=== PATIENT | female | born 1945 | race Caucasian/White ===

== ENCOUNTER 2020-03-25 13:45 | Emergency (ER) | payer MEDICARE, SELFPAY ==
[2020-03-25 13:47] VITALS: BP 131/78; PULSE 103; RESP 18; TEMP 36.3; O2SAT 93; BMI 24.0
[2020-03-25 14:54] LABS: Absolute Lymphocyte Count 0.69 X10^3/uL (0.83-4.51); Absolute Neutrophil Count 5.4 X10^3/uL (2.0-7.7); Basophil# 0.01 X10^3/uL; Basophil% 0.2 % (0-1); Eosinophil# 0.01 X10^3/uL; Eosinophils% 0.2 % (0-5); Hematocrit 41.3 % (37-47); Hemoglobin 13.9 g/dL (12.0-15.0); Lymphocyte # 0.69 X10^3/ul (4.0); Lymphocyte % 10.7 % (19-41); Mean Corp Hgb Conc 33.7 g/dL (32-36); Mean Corpuscular Hgb 32.6 pg (27.0-32.0); Mean Corpuscular Volume 96.7 fL (81-99); Mean Platelet Vol. 9.1 fl (6.2-12.0); Monocyte% 4.7 % (0-10); NRBC Flagged by Analyzer 0 % (0-5); Neutrophil # 5.41 X10^3/uL (2.7-7.7); Neutrophil % 83.9 % (47-70); POSITIVE MORPHOLOGY YES; Platelet Count 217 K/mm3 (150-450); RBC Distribution Width CV 11.7 % (11.6-14.6); RBC Distribution Width SD 41.8 fl (35.1-43.9); Red Blood Count 4.27 M/mm3 (4.2-5.4); White Blood Count 6.4 K/mm3 (4.4-11.0)
[2020-03-25 14:59] LABS: Differential Indicated SCAN CRITERIA MET
[2020-03-25 15:10] LABS: Anion Gap 7 (5-15); BUN 9 mg/dL (7-18); BUN/Creat Ratio 13.3 RATIO (10-20); Calcium,Total 8.6 mg/dL (8.5-10.1); Chloride 101 mmol/L (98-107); Creatinine, Serum 0.68 mg/dL (0.55-1.02); EST Glomerular Filtration Rate 90 mL/min (>60); Est Glom Filt Rate - Afr Amer 109 mL/min (>60); Estimated Creatinine Clearance 41.33 ml/min; Glucose 113 mg/dL (74-106); Potassium 3.5 mmol/L (3.5-5.1); Sodium Level 139 mmol/L (136-145)
[2020-03-25] MEDS: dexAMETHasone 4 MG/ML Vial 6 MG IV (15:23)
--- NOTE | 2020-03-25 15:28 | RAD_ITS ---
STUDY: X-RAY CHEST REASON FOR EXAM: Female, 74 years old. LOSS OF TASTE/SMELL, BODY ACHES, TIRED X 1 WK. TECHNIQUE: Single AP portable view of the chest. COMPARISON: None. FINDINGS: EKG electrodes are seen. Minimal increased markings in the right upper lobe. There is no demonstrated pleural abnormality. Normal size heart. Normal mediastinum and ronen. Normal visualized pulmonary arteries. Normal visualized aortic arch and descending thoracic aorta. Normal visualized thoracic spine. There is degenerative osteoarthritis of the bilateral shoulders. There is no demonstrated abnormality of the visualized soft tissue structures of the upper abdomen. RAD/Chest 1 View (Portable) IMPRESSION: Minimal increased markings in the right upper lobe. Follow-up is recommended. Electronically Signed: Ramírez Rasmussen, at 15:46 EST , Service support ,
[2020-03-25 15:35] VITALS: O2SAT 93
[2020-03-25 16:05] LABS: Probe Check PASS; Specimen Processing Control PASS
[2020-03-25 16:07] LABS: Platelet Estimate ADEQUATE (ADEQ); Red Cell Morphology NORM C+C NORMAL (NORM C&C)
--- NOTE | 2020-03-25 16:08 | ED.DCSUM_ITS ---
- ER Visit Summary Date of Service: 03/25/20 Chief Complaint: Do not feel well History of Present Illness: The patient is a 74 F who does not have a primary care physician. She reports that approximately week ago she had a loss of sense of taste and smell. States that she also has a cough. She had shortness of breath with walking. They have a pulse oximeter at home. reports that her pulse ox is high 80s to low 90s at rest. When she walks it seems to go up into the 90s. However, then when she sits down it goes into the mid 80s. 5 to 7 minutes later is returned to the mid 90s. She has not been tested for Covid. Patient [place] any fever or chills. She complains of generalized weakness. Poor appetite and injury. Physical Examination: Vitals: Stable. Afebrile. General: Well-nourished and well-developed. Head: Normocephalic atraumatic. Neck: Supple, no lymphadenopathy. No JVD. Nontender. Cardiovascular: Regular rate and rhythm. No murmurs. Respiratory: No respiratory distress. Clear to auscultation bilaterally. Abdominal: Soft, nontender, nondistended, normal bowel sounds. No guarding, rebound, or peritoneal signs. Back: Nontender. Extremities: Nontender, no edema. Skin: Normal color, no rash. Neurologic: Alert and oriented ?3. Cranial nerves II through XII are intact. Normal strength and sensation. Psych: Normal affect. Test Results: CBC shows segmented flows 84 lymphocytes of 11. Chem-7 shows a glucose of 113. COVID-19 is positive. Clinical Impression(s) from Imaging Studies Chest X-Ray 03/25/20 15:28 IMPRESSION: Minimal increased markings in the right upper lobe. Follow-up is recommended. Electronically Signed: Ramírez Alcantarapaulette, at 15:46 EST , Service support , Emergency Department Course and Treatment: Patient is ambulatory pulse ox was 88% on room air. On 2 L nasal cannula her pulse ox is in the high 90s and she is resting comfortably. She was given dexamethasone IV. Treatment Plan: The patient would like to go home. We have arranged for her to have home O2. She also be discharged on a weeks worth of dexamethasone. Instructed to return the emerge department for any worsening symptoms. Follow- up with her primary care physician in 10 to 14 days if not improved. Disposition: To home in improved and stable condition. Impression: 1. COVID-19 positive. 2. Hypoxia. This note was generated with [employer] dictation software. It may contain incorrect words, spelling, and punctuation that were not noted in review of the chart prior to signing ED Disposition - Plan for ED Patient: Disposition: Home or Assisted Living Instructions: ED Upper Resp Infec No Abx Tx Prescriptions: Dexamethasone 6 mg PO DAILY #7 tab Prescription Printed Referrals: Tung Coyle III, MD [STAFF PHYSICIAN] - 10-14 Days if not better
--- NOTE | 2020-03-25 16:40 | CM.ED ---
SOCIAL WORK Informant: Dr. Woodson Reason for Consult: Discharge Planning- Home O2 needs Updated by Dr. Woodson patient with positive COVID-19 test. Patient does not require admission, requires home 02. Discussed with patient's who is in agreement with home O2 being set up through [employer]. reports does have pulse ox at home. Informed [employer] and a nurse case hardener will be following up with patient and . requests they call [phone]. Dr. Woodson completed Quick Script for [employer]. Demographics, COVID-19 test results and script faxed and called to [employer]. Worker states sending residential sales representative over at this time to deliver tank. Patient, and staff updated. Plan: Home with home O2 Teetee Schroeder MSW, [employer]ARD LAB[employer]ER
[2020-03-25 17:00] VITALS: BP 125/70; PULSE 85; RESP 24; O2SAT 97
[2020-03-25 17:23] VITALS: BP 125/79; PULSE 81; RESP 18; O2SAT 97
--- NOTE | 2020-03-26 13:58 | CASEMGMT ---
ELVIRA SCHAFFER Follow-up Call: Call placed to pt's 's cell phone per their request. Voicemail identified as Davie's received and message left requesting a return call. Ramesh Maldonado RN CM
--- NOTE | 2020-03-27 15:43 | CASEMGMT ---
ELVIRA SCHAFFER Follow-up: Pt's Davie returned phone call from 03/26/2020. He explained that their phones were out yesterday and he did not receive the message until today. Davie states that the patient is improved today with increased alertness and appetite. He reports pt's pulse oximeter readings have been in the 90's at rest but when she moves around it drops to 85-90%. He explained that she is not wearing the oxygen when she was up and it decreased. Educated him on the need for her to wear the oxygen at all times including when she is up and moving. He expressed understanding. He stated that they put the concentrator in the middle level to allow the tubing to reach to all three levels of their home. Pt's denies any fevers but states the pt sweats at night. Pt's enquired as to when they should cease using the oxygen. Explained that her pulse oximetry readings would need to stay greater than 90% even with movement but that he should follow-up with a primary care physician for final direction on when to stop the oxygen use. He states that they do not have a primary care physician at this time but had been in the process of looking for one when they became ill. This RN CM offered to provide them a list but pt's states their daughter is a nurse and can help them find one. Explained the need to have a PCP to determine need to cease O2 use and for senior care management of chronic conditions and a point of contact when illnesses arise. He expressed understanding. Pt's denied any further questions or concerns. Ramesh Maldonado RN CM
--- NOTE | 2020-03-28 14:58 | CASEMGMT ---
RN CM Note: attempted call to patient's . Phone call dropped and was not able to speak with him. Will attempt call again. Adarsh THOMPSONN RN ACM
--- NOTE | 2020-03-29 15:24 | CASEMGMT ---
ELVIRA SCHAFFER ED Follow up note: intro role of CM to patient's . He states the patient is doing well at home and is noticeably improving today. She was able to ambulate around home and eat a meal without oxygen and her pulse oximeter stayed above 90%. -Patient is eating and drinking without difficulty. Still has fatigue with activity, however this is improving. -Daughter is completing paperwork for PCP with [facility]. encouraged to follow up so first appointment can be made. states he has been in communication with Dr. Adkins if questions arise. -Questions answered re: length of quarantine. states they will be forgoing thanksgiving get together with family. -No further questions. ELVIRA SCHAFFER let know this concludes the follow up calls. ELVIRA SCHAFFER offered to give # if questions arise for Wednesday, however he felt they would not need this and would utilize daughter if questions arise. Adarsh SEGAL RN ACM
== END 2020-03-25 17:24 | disposition home or self-care (01) ==
LOC: ED 15:01
PROVIDERS: Emergency Provider Emergency Medicine
DX: U07.1 COVID-19 (principal); R09.02 Hypoxemia
CPT/HCPCS: 71045; 80048; 85025; 87635; 96374; 99284; A4216; U0002

== ENCOUNTER 2024-04-10 10:21 | Emergency (ER) | payer MEDICARE, SELFPAY ==
[2024-04-10] VITALS (8 sets, daily range): BP systolic 126–173; BP diastolic 80–96; PULSE 72–119; RESP 14–24; TEMP 36.6–36.9; O2SAT 95–100; BMI 21.2
--- NOTE | 2024-04-10 10:39 | CT_ITS ---
STUDY: CT BRAIN WITHOUT CONTRAST REASON FOR EXAM: Female, 78 years old. PT FELL ON WEDNESDAY, HIT HER HEAD, C/O DIZZINESS. RT HAND IS SWOLLEN AND DISCOLORED. LT RING FINGER PT IS UNABLE TO STRAIGHTENED. RADIATION DOSAGE (If Supplied By Facility): CTDIvol = ( 44.99 ) mGy, DLP = ( 779.24 ) mGycm TECHNIQUE: Transaxial CT imaging of the brain was performed without administration of intravenous contrast material. Individualized dose optimization techniques were used for this CT. COMPARISON: None. FINDINGS: No demonstrated skull fracture or pneumocephalus or subdural hemorrhage. No visualized extra-axial fluid collection or midline shift. Normal soft tissue structures. Normal calvarium. There is mild cerebral atrophy with widening of the extra-axial spaces and ventricular dilatation. There are areas of decreased attenuation within the white matter tracts of the supratentorial brain, consistent with microvascular disease changes. There are small punctate calcifications of the basal ganglia which are seen in the aging brain as a normal variant. Normal brainstem. Normal cerebellum. There is no intracranial hemorrhage. There are no findings of an acute ischemic infarction. Normal visualized paranasal sinuses. CT/Brain/Head without Contrast IMPRESSION: 1. Chronic and chronic ischemic involutional changes of the brain. Electronically Signed: Aric Alarcon MD at 11:37 EST ,
--- NOTE | 2024-04-10 10:39 | CT_ITS ---
STUDY: CT CERVICAL SPINE WITHOUT CONTRAST REASON FOR EXAM: Female, 78 years old. PT FELL ON WEDNESDAY, HIT HER HEAD, C/O DIZZINESS. RT HAND IS SWOLLEN AND DISCOLORED. LT RING FINGER PT IS UNABLE TO STRAIGHTENED. RADIATION DOSAGE (If Supplied By Facility): CTDIvol = ( 15.93 ) mGy, DLP = ( 279.36 ) mGycm TECHNIQUE: High resolution transaxial imaging was performed without contrast material. Sagittal and coronal images were reconstructed. Individualized dose optimization techniques were used for this CT. COMPARISON: None FINDINGS: An acute mild comminuted compression fracture with cortical offset and retropulsion is present at T4 with loss of vertebral body height of approximately 20-30%. No acute fractures are seen in the cervical spine. Mild to moderate multilevel degenerative changes are present in the cervical spine. No demonstrated jumped facets. Normal craniovertebral junction. Normal anterior atlantoaxial articulation. Normal odontoid process. Normal cervical lordosis. The bony structures are demineralized. Normal visualized soft tissue structures. CT/Spine Cervical without Contras IMPRESSION: 1. An acute mild comminuted compression fracture with cortical offset and retropulsion is present at T4 with loss of vertebral body height of approximately 20-30%. No acute fractures are seen in the cervical spine. 2. Multilevel degenerative changes, as described above. N.B. : Tram Castro RN, confirmed on 04/10/2024 11:46:08 (ET) that the healthcare facility has received the radiology report. Electronically Signed: Aric Alarcon MD at 11:40 EST ,
--- NOTE | 2024-04-10 10:43 | EX.ED.GENINJ ---
HPI History of Present Illness Chief Complaint: Head Injury Informant: patient and spouse/S.O. Narrative Narrative: 78-year-old female presenting to the emergency room with right hand injury. Patient states that early Wednesday morning she fell at home. She missed a step. She believes she hit her head and had soreness to her neck. She notes an injury to the right ring finger and unable to straighten it. She notes bruising over the hand and finger. states that she just does not seem her normal self. She is shaky and unsteady. No reported loss of consciousness. No nausea or vomiting. PFSH PFSH Home Medications ?Medication ?Instructions ?Recorded ?Last Taken ?Type aspirin 81 mg tablet,delayed 81 mg PO DAILY 04/29/20 Unknown History release (Adult Low Dose Aspirin) Allergy/AdvReac Type Severity Reaction Status Date / Time No Known Allergies Allergy Verified 04/10/24 10:22 Family History Father Heart disease Brother Heart disease Surgical History History of tonsillectomy and adenoidectomy Social History Smoking Status: Never smoker alcohol intake: current alcohol intake frequency: 0-2 drinks per day details: 1-2 oz. of Gin daily substance use type: does not use ROS ROS ED Constitutional Constitutional ED: Denies chills or weight loss Eyes Eyes: Denies change in vision or diplopia ENT ENT ED: Denies ear pain, rhinorrhea or sore throat Cardiovascular Cardiovascular: Denies chest pain, orthopnea, palpitations or racing heartbeat Respiratory/Chest Respiratory/Chest: Denies cough, dyspnea or orthopnea Gastrointestinal Gastrointestinal: Denies abdominal pain, diarrhea, nausea or vomiting Genitourinary Genitourinary ED: Denies dysuria, hematuria or urinary frequency Musculoskeletal Musculoskeletal: Reports neck pain and other Details: Right hand pain ring finger injury ; Denies arthralgias or myalgias Integumentary Denies abscess or rash Neurologic Neurologic: Denies headache(s) or weakness Psychiatric Psychiatric: Denies anxiety, depression, suicidal ideation or suicidal thoughts Endocrine Endocrinology: Denies polydipsia, polyphagia or polyuria Allergic/Immunologic Allergic/Immunologic ED: Denies mouth swelling, tongue swelling or urticaria EXAM Physical Exam Const Vital Signs: 04/10/24 10:22 04/10/24 10:22 04/10/24 10:40 Temperature 98 F Temperature Source Temporal Pulse Rate 119 H 74 Pulse Rate [1 (Initial Baseline)] Pulse Rate [3] Respiratory Rate 14 Respiratory Rate [1 (Initial Baseline)] Respiratory Rate [3] Respiratory Effort Normal Respiratory Depth Normal Respiratory Pattern Normal Blood Pressure 163/96 H Blood Pressure [1 (Initial Baseline)] Blood Pressure [3] Blood Pressure Mean 118 Pulse Ox 98 Oxygen Delivery Method Room Air Room Air Oxygen Delivery Method [1 (Initial Baseline)] Oxygen Delivery Method [3] Oxygen Flow Rate (L/min) Oxygen Flow Rate (L/min) [1 (Initial Baseline)] Oxygen Flow Rate (L/min) [3] EtCo2 (Normal 35-45 , high quality CPR 10-20 & ROSC>/=40mmHg EtCo2 (Normal 35-45 , high quality CPR 10-20 & ROSC>/=40mmHg [1 (Initial Baseline)] EtCo2 (Normal 35-45 , high quality CPR 10-20 & ROSC>/=40mmHg [3] 04/10/24 12:22 04/10/24 13:21 04/10/24 13:51 Temperature 98.5 F Temperature Source Pulse Rate 82 94 Pulse Rate [1 (Initial Baseline)] Pulse Rate [3] Respiratory Rate 24 H 22 H Respiratory Rate [1 (Initial Baseline)] Respiratory Rate [3] Respiratory Effort Respiratory Depth Respiratory Pattern Blood Pressure 162/82 H 173/80 H Blood Pressure [1 (Initial Baseline)] Blood Pressure [3] Blood Pressure Mean 108 Pulse Ox 95 100 Oxygen Delivery Method Room Air Oxygen Delivery Method [1 (Initial Baseline)] Oxygen Delivery Method [3] Oxygen Flow Rate (L/min) Oxygen Flow Rate (L/min) [1 (Initial Baseline)] Oxygen Flow Rate (L/min) [3] EtCo2 (Normal 35-45 , high quality CPR 10-20 & ROSC>/=40mmHg 24 25 EtCo2 (Normal 35-45 , high quality CPR 10-20 & ROSC>/=40mmHg [1 (Initial Baseline)] EtCo2 (Normal 35-45 , high quality CPR 10-20 & ROSC>/=40mmHg [3] 04/10/24 13:52 04/10/24 14:00 04/10/24 14:05 Temperature Temperature Source Pulse Rate Pulse Rate [1 (Initial Baseline)] 98 Pulse Rate [3] 89 Respiratory Rate Respiratory Rate [1 (Initial Baseline)] 19 H Respiratory Rate [3] 22 H Respiratory Effort Respiratory Depth Respiratory Pattern Blood Pressure Blood Pressure [1 (Initial Baseline)] 173/80 H Blood Pressure [3] 126/87 H Blood Pressure Mean Pulse Ox Oxygen Delivery Method Nasal Cannula Room Air Oxygen Delivery Method [1 (Initial Baseline)] Nasal Cannula Oxygen Delivery Method [3] Nasal Cannula Oxygen Flow Rate (L/min) 2 Oxygen Flow Rate (L/min) [1 (Initial Baseline)] 2 Oxygen Flow Rate (L/min) [3] 2 EtCo2 (Normal 35-45 , high quality CPR 10-20 & ROSC>/=40mmHg 31 41 EtCo2 (Normal 35-45 , high quality CPR 10-20 & ROSC>/=40mmHg [1 (Initial Baseline)] 30 EtCo2 (Normal 35-45 , high quality CPR 10-20 & ROSC>/=40mmHg [3] 30 04/10/24 14:10 04/10/24 14:40 Temperature 98.1 F Temperature Source Pulse Rate 72 Pulse Rate [1 (Initial Baseline)] Pulse Rate [3] Respiratory Rate 19 H Respiratory Rate [1 (Initial Baseline)] Respiratory Rate [3] Respiratory Effort Respiratory Depth Respiratory Pattern Blood Pressure 160/86 H Blood Pressure [1 (Initial Baseline)] Blood Pressure [3] Blood Pressure Mean 110 Pulse Ox 97 Oxygen Delivery Method Room Air Oxygen Delivery Method [1 (Initial Baseline)] Oxygen Delivery Method [3] Oxygen Flow Rate (L/min) Oxygen Flow Rate (L/min) [1 (Initial Baseline)] Oxygen Flow Rate (L/min) [3] EtCo2 (Normal 35-45 , high quality CPR 10-20 & ROSC>/=40mmHg EtCo2 (Normal 35-45 , high quality CPR 10-20 & ROSC>/=40mmHg [1 (Initial Baseline)] EtCo2 (Normal 35-45 , high quality CPR 10-20 & ROSC>/=40mmHg [3] Positive well nourished and well developed General Appearance ED: well developed and NAD HEENT Reports normocephalic, head/scalp atraumatic and moist mucous membranes Eyes PERRL and EOMs intact bilaterally Neck full ROM, no lymphadenopathy, supple and no JVD Neck Narrative: Mild soreness of the neck with range of motion. No midline tenderness. Resp normal respiratory effort and clear to auscultation bilaterally Cardio regular rate, regular rhythm and no murmurs GI normal to inspection, nondistended, normoactive bowel sounds and non-tender Palpation: soft Back/Spine no CVA tenderness and normal ROM Back/Spine Narrative: Patient has kyphosis. Tender to palpation around T2-T4. There is a area of ecchymosis in the right scapular region Extremity Extremity Narrative: The dorsum of the right hand is ecchymotic and swollen. The ring finger is held in flexion at the PIP joint. There is no tenderness at the MCP joint. Neurovascularly appears intact. General Extremety ED: Negative for edema General Extremity: Negative for edema Neuro oriented x3 and CN's II-XII intact bilaterally Neuro Narrative: Patient has a tremor at both rest and intention. Sensorium / Orientation: alert Motor Exam: strength 5/5 throughout Psych mental status grossly normal Mood & Affect: Negative for depressed or tearful Skin no rashes or lesions noted and no wounds PROC Procedures Procedural Sedation 1 (Initial Baseline): Consent Signed: Yes Any Problems With Anesthesia: No You/Your family experience fever (hyperthermia) w/anesthesia: No Sedation medication: Propofol Dose: 57 Route: IV Total Moderate Sedation Units: 6 Maliampati Score: Class II ASA Classification: I MDM MDM MDM Narrative Medical decision making narrative: Differential diagnosis includes fracture intracranial hemorrhage dehydration electrolyte abnormalities anemia finger fracture tendon injury neurovascular injury My independent interpretation of the plain films of the right hand is a proximal phalanx fracture of the ring finger. CT the brain shows no acute findings. CT of the cervical spine demonstrates a T4 compression fracture. Therefore a CT of the lumbar and thoracic spine was obtained. Please see radiologist read. Basic blood work shows white count 5.9 hemoglobin 13.7 glucose 127 otherwise normal electrolytes BUN and creatinine within normal limits. I spoke with the patient and her significant other regarding the above findings. My recommendation is that we do procedural sedation to see if I can reduce the deformity to the right ring finger. They provided informed consent for the procedure. Patient received 1/2 mg/kg bolus of propofol followed by second dose to achieve adequate sedation. Once adequate sedation was achieved by recreated flexion then was able to bring the finger into extension. She was placed in a ulnar gutter Ortho glass splint. Patient recovered from sedation without any difficulty. Would recommend follow-up with orthopedics. Dr. Sutton is on for spine he can see her for both the hand and the spine but if they wish to see hand surgery they can see Dr. Atwood. History & Record Review Discussion w/independent historian: Patient and Significant other Lab Data Attestation: I reviewed the patient's lab results. Labs: Laboratory Results - last 24 hr 04/10/24 10:50 WBC 5.9 RBC 4.33 Hgb 13.7 Hct 42.4 MCV 97.9 MCH 31.6 MCHC 32.3 RDW Std Deviation 44.4 H RDW Coeff of Leonora 12.2 Plt Count 194 MPV 9.7 Immature Gran % (Auto) 0.500 Neut % (Auto) 68.7 Lymph % (Auto) 20.8 Thurston % (Auto) 7.8 Eos % (Auto) 1.5 Baso % (Auto) 0.7 Absolute Neuts (auto) 4.1 Absolute Lymphs (auto) 1.23 Nucleated RBC % 0 Sodium 143 Potassium 3.5 Chloride 108 H Carbon Dioxide 30.0 Anion Gap 6 BUN 17 Creatinine 0.92 Estim Creat Clear Calc 40.34 Est GFR (MDRD) Af Amer 75 Est GFR (MDRD) Non-Af 62 BUN/Creatinine Ratio 18.5 Glucose 127 H Calcium 9.6 Radiography Diagnostic Testing: Clinical Impression(s) from Imaging Studies Brain CT 04/10/24 10:39 IMPRESSION: 1. Chronic and chronic ischemic involutional changes of the brain. Electronically Signed: Aric Alarcon MD at 11:37 EST Reading Location ID and State: [facility] / [place] , Service support , Cervical Spine CT 04/10/24 10:39 IMPRESSION: 1. An acute mild comminuted compression fracture with cortical offset and retropulsion is present at T4 with loss of vertebral body height of approximately 20-30%. No acute fractures are seen in the cervical spine. 2. Multilevel degenerative changes, as described above. N.B. : Tram Castro RN, confirmed on 04/10/2024 11:46:08 (ET) that the healthcare facility has received the radiology report. Electronically Signed: Aric Alarcon MD at 11:40 EST , Hand X-Ray 04/10/24 10:54 IMPRESSION: Fracture through the proximal shaft of the fourth proximal phalanx, with posterior angulation. 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 Degenerative arthrosis of the MCP joints and interphalangeal joints of the first through fifth fingers, most severe at the first MCP joint and fifth DIP joint. Electronically Signed: Teto Cortes MD at 11:27 EST , Lumbar Spine CT 04/10/24 12:04 IMPRESSION: 1. Multilevel degenerative changes, as described above. Electronically Signed: Aric Alarcon MD at 13:32 EST , Thoracic Spine CT 04/10/24 12:04 IMPRESSION: 1. An acute mildly comminuted compression fracture of the T4 vertebral body is present with slight retropulsion of the posterior superior aspect of vertebral body into the central canal/anterior epidural space and approximately 20-30% loss of height. Electronically Signed: Aric Alarcon MD at 13:31 EST , Discharge Plan Triage Chief Complaint: Head Injury ED Provider: Avi Peterson Dx/Rx/DC Orders Clinical Impression: Compression fracture of T4 vertebra, Fracture of proximal phalanx of digit of right hand, Injury of extensor tendon of right hand, Fall Instructions: ED Fracture, Vertebral Compression, ED Fracture, Finger, Closed Prescriptions: No Action aspirin [Adult Low Dose Aspirin] 81 mg tablet,delayed release (DR/EC) 81 mg PO DAILY Primary Care Provider: Care Physician,No Primary Referrals: Riki Sutton MD [Med Staff - Active Staff] - As soon as possible (for orthopedic spine and finger fracture) Tino Atwood MD [Med Staff - Active Staff] - As soon as possible (for hand surgery if you wish to see hand surgery instead of orthopedics) Care Physician,No Primary [Primary Care Provider] - Print Language: Indonesian Disposition Disposition: Home, Self Care Discharge Date/Time: 04/10/24 14:48
--- NOTE | 2024-04-10 10:54 | RAD_ITS ---
STUDY: X-RAY - RIGHT HAND REASON FOR EXAM: Female, 78 years old. Injury 4th digit. TECHNIQUE: 3 views of the right hand. COMPARISON: None. FINDINGS: Normal radiocarpal articulation. Normal distal radioulnar joint. Normal visualized carpal bones. Normal carpal articulations There is degenerative arthrosis of the carpometacarpal (CMC) articulation of the thumb. Normal second through fifth carpometacarpal joints. Intact metacarpi. There is degenerative arthrosis of the MCP joints and interphalangeal joints of the first through fifth fingers, most severe at the first MCP joint and fifth DIP joint. There is a fracture through the proximal shaft of the fourth proximal phalanx, with posterior angulation. There is mild soft tissue swelling along the dorsum of the hand. RAD/Hand Min 3 Views IMPRESSION: Fracture through the proximal shaft of the fourth proximal phalanx, with posterior angulation. 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 Degenerative arthrosis of the MCP joints and interphalangeal joints of the first through fifth fingers, most severe at the first MCP joint and fifth DIP joint. Electronically Signed: Teto Cortes MD at 11:27 [facility] Reading Location ID and State: [facility] / [place] , Service support ,
[2024-04-10 11:01] LABS: Absolute Lymphocyte Count 1.23 X10^3/uL (0.83-4.51); Absolute Neutrophil Count 4.1 X10^3/uL (2.0-7.7); Basophil# 0.04 X10^3/uL; Basophil% 0.7 % (0-1); Eosinophil# 0.09 X10^3/uL; Eosinophils% 1.5 % (0-5); Hematocrit 42.4 % (37-47); Hemoglobin 13.7 g/dL (12.0-15.0); Lymphocyte # 1.23 X10^3/ul (0.83-4.51); Lymphocyte % 20.8 % (19-41); Mean Corp Hgb Conc 32.3 g/dL (32-36); Mean Corpuscular Hgb 31.6 pg (27.0-32.0); Mean Corpuscular Volume 97.9 fL (81-99); Mean Platelet Vol. 9.7 fl (6.2-12.0); Monocyte# 0.46 X10^3/uL; Monocyte% 7.8 % (0-10); NRBC Flagged by Analyzer 0 % (0-5); Neutrophil # 4.05 X10^3/uL (2.7-7.7); Neutrophil % 68.7 % (47-70); Platelet Count 194 K/mm3 (150-450); RBC Distribution Width CV 12.2 % (11.6-14.6); RBC Distribution Width SD 44.4 fl (35.1-43.9); Red Blood Count 4.33 M/mm3 (4.2-5.4); White Blood Count 5.9 K/mm3 (4.4-11.0)
[2024-04-10 11:13] LABS: Anion Gap 6 (5-15); BUN 17 mg/dL (7-18); BUN/Creat Ratio 18.5 RATIO (10-20); Calcium,Total 9.6 mg/dL (8.5-10.1); Chloride 108 mmol/L (98-107); Creatinine, Serum 0.92 mg/dL (0.55-1.02); EST Glomerular Filtration Rate 62 mL/min (>60); Est Glom Filt Rate - Afr Amer 75 mL/min (>60); Estimated Creatinine Clearance 40.34 ml/min; Glucose 127 mg/dL (74-106); Potassium 3.5 mmol/L (3.5-5.1); Sodium Level 143 mmol/L (136-145)
--- NOTE | 2024-04-10 12:04 | CT_ITS ---
STUDY: CT LUMBAR SPINE WITHOUT CONTRAST REASON FOR EXAM: Female, 78 years old. fall thoracic fracture RADIATION DOSAGE (If Supplied By Facility): CTDIvol = ( 17.46 ) mGy, DLP = ( 507.45 ) mGycm TECHNIQUE: The patient was scanned in a multi detector CT scanner. High resolution transaxial imaging was performed. Images were obtained from to . Sagittal and coronal images were reconstructed. Individualized dose optimization techniques were used for this CT. COMPARISON: None FINDINGS: Normal lumbar lordosis. There is no substantial scoliosis. No demonstrated fractures of the vertebral bodies or posterior elements of the lumbar spine. Diffuse demineralization of the osseous structures. Mild multilevel degenerative changes are present. Minimal levoscoliosis noted. No demonstrated sacral or proximal iliac wing fracture. Normal visualized paraspinous soft tissue structures. CT/Spine Lumbar without Contrast IMPRESSION: 1. Multilevel degenerative changes, as described above. Electronically Signed: Aric Alarcon MD at 13:32 EST ,
--- NOTE | 2024-04-10 12:04 | CT_ITS ---
STUDY: CT THORACIC SPINE WITHOUT CONTRAST REASON FOR EXAM: Female, 78 years old. compression fracture RADIATION DOSAGE (If Supplied By Facility): CTDIvol = ( 18.61 ) mGy, DLP = ( 656.77 ) mGycm TECHNIQUE: The patient was scanned in a multi detector CT scanner. High resolution imaging was performed. Images were obtained from to . Sagittal and coronal images were reconstructed. Individualized dose optimization techniques were used for this CT. COMPARISON: CT of the cervical spine dated April 10, 2024. FINDINGS: An acute mildly comminuted compression fracture of the T4 vertebral body is present with slight retropulsion of the posterior superior aspect of vertebral body into the central canal/anterior epidural space and approximately 20-30% loss of height. No additional acute vertebral body fractures are seen. No demonstrated fractures of the posterior elements. There is multilevel degenerative disc disease and cervical spondylosis. Significant exaggeration of the thoracic kyphosis. There is no substantial scoliosis. There is multilevel endplate spondylosis of the thoracic spine. There is multilevel degenerative disc disease with loss of the disc space heights. The bony structures are demineralized. The soft tissue structures are unremarkable. CT/Spine Thoracic without Contras IMPRESSION: 1. An acute mildly comminuted compression fracture of the T4 vertebral body is present with slight retropulsion of the posterior superior aspect of vertebral body into the central canal/anterior epidural space and approximately 20-30% loss of height. Electronically Signed: Aric Alarcon MD at 13:31 EST ,
--- NOTE | 2024-04-10 13:54 | CM.ED ---
Social Work Reason for visit: No PCP Patient and verified that patient does not currently have a PCP. Resource list offered with local physicians. Patient and accepting of same. Nery Hernandez, [employer], HEDIS MANAGER
[2024-04-10] MEDS: Propofol 200 MG/20 ML Vial IV BOLUS (14:05)
== END 2024-04-10 14:48 | disposition home or self-care (01) ==
PROVIDERS: Emergency Provider Emergency Medicine; Visit Provider Emergency Medicine
DX: S62.614A Displaced fracture of proximal phalanx of right ring finger, initial encounter for closed fracture (principal); M48.54XA Collapsed vertebra, not elsewhere classified, thoracic region, initial encounter for fracture; S66.901A Unspecified injury of unspecified muscle, fascia and tendon at wrist and hand level, right hand, initial encounter; W10.9XXA Fall (on) (from) unspecified stairs and steps, initial encounter; Y92.009 Unspecified place in unspecified non-institutional (private) residence as the place of occurrence of the external cause; Z79.82 Long term (current) use of aspirin; M54.2 Cervicalgia
CPT/HCPCS: 26725; 29130; 70450; 72125; 72128; 72131; 73130; 80048; 85025; 99284

== ENCOUNTER 2024-05-31 08:00 | Outpatient (RCR) | payer MEDICARE, SELFPAY ==
--- NOTE | 2024-05-16 11:46 | HP.OTEVAL_ITS ---
Patient's Visit Information Visit Information Visit Information: MATTHIAS PASCUAL is a 78 year old F, referred to Occupational Therapy by Dr. Tino Atwood MD, with a diagnosis of S62.619A displaced fracture of proximal phalanx. Date of Evaluation: 05/16/24 Occupational Therapist: Mary Black Subjective Subjective: This 78 year old female arrives with R hand RF P1 fracture. Pt states she missed a step coming down fx on . pt saw Dr atwood who casted for 5 weeks pt chooses non operative route. fracture was reduced in ED chooses no further reduction after. Pt is R hand dominant. Pt presents this date for removable orthosis as well as gentle ROM. Objective Objective/Observation: arrives R hand swollen at MCP and PIP bend at RF PIP joint ROM Wrist: R 40/35 L 60/45 MP: R RF 0/40 R LF 0/40 PIP: R RF -30/35 R LF 0/50 DIP: R RF hyperextension 10/15 R LF 0/15 ROM Comments: deviating ulnarly at RF as well as LF Strength Strength Comments: to test at later date once able Edema PIP: L 7 cm R 6 cm Proximal Phalanx: L 20 cm R 19 cm Sensation Sensation Comments: denies numbness or tingling of hand Quick DASH-Disab of Arm,Shoulder& Hand Quick DASH Score: 29.5450 Goals Goal:100% adherence to protocol: Yes Goal:Daily scar massage when approriate: Yes Goal:ROM equal to unaffected hand: Yes Goal:Exhaust And Muffler Fitter/Pinch strength at least 75% of unaffected hand: Yes Goal:No pain with affected hand use: Yes Goal:PIP Circumferences equal to unaffected hand: Yes Goal:Full use of affected hand in daily activities including work: Yes Other Goal: pt will improve quick dash score by 10 points or more in order to promote use of R hand during functional tasks Rehabilitation General Assessment: This 78 year old female arrives with dx of displaced fracture of proximal phalax R hand RF. Pt presents this date with limitations in ROM, swelling as well as decreased alignment as a result. anticipate decreased strength due to fx and immobilization. OT necessary for the fabrication of removable orthosis in safe position to promote proper healing as well as intervention to address ROM and strengthening once able 1-2x a week for 6-8 weeks. Rehabilitation Potential: Good Anticipated Interventions Anticipated Interventions: A/MIRIAMOM/PROM, Strengthening, Edema Control, Triggerpoint Release, Modalities, Orthoses, Joint Protection/Energy Conservation, Education re Diagnosis and Home Program Visit Plan Frequency: 1-2x /Week Duration: 6-8 weeks General Plan: bracing AROM/AAROM/PROM edema management strengthening once able with good healing TEXT: Thank you for the opportunity to evaluate your patient. For Medicare and Medicare HMO plans, please review the plan of care and approve it. It will need to be FAXED BACK to us at [phone] for Medicare purposes. Please let me know if there are questions or concerns regarding this plan of care. Physician Signature: Date:
--- NOTE | 2024-08-17 10:15 | HP.OTDCNRP_ITS ---
Patient Information Patient Information: MATTHIAS PASCUAL was seen in my office for initial evaluation on 05/16/24. The following Plan of Care was established for this patient: POC Established Initial Frequency: 1-2x /Week Initial Duration: 6-8 weeks Plan: improve AROM Anticipated Interventions Anticipated Interventions: A/AAROM/PROM, Strengthening, Edema Control, Triggerpo int Release, Modalities, Orthoses, Joint Protection/Energy Conservation, Education re Diagnosis and Home Program Last Seen Last Seen: This patient was last seen in our office 05/31/24. Pertinent comments regarding their Occupational therapy will appear below: This 78 year old female seen by OT with dx of R displaced fx proximal phalanx. pt seen and demonstrating improvements in ROM and reduction in pain. discharge from OT caseload due to lapse in time of services with no additional appointments scheduled. At this point I will be discontinuing this patient from occupational therapy. I would be happy to see this patient again in the future if found appropriate by the physician. Thank you! Mary Black
== END 2024-05-31 19:00 | disposition home or self-care (01) ==
LOC: OT 08:00
PROVIDERS: Referring Provider Surgery Plastic and Reconstructive Surgery; Visit Provider Surgery Plastic and Reconstructive Surgery
DX: S62.619D Displaced fracture of proximal phalanx of unspecified finger, subsequent encounter for fracture with routine healing (principal)
CPT/HCPCS: 97110; 97140; 97165; 97530; 97760